=== PATIENT | male | born 1975 ===

== ENCOUNTER 2019-08-14 18:40 | Emergency (ER) | payer SELFPAY ==
--- OUTSIDE RECORDS SUMMARY | 2019-08-14 18:42 | XMS REPORT ---
:1975 [facility] Address [address] [place] [address] [address] [place] [address] Care Team Providers Name Role Phone Unavailable Unavailable Unavailable Problems This patient has no known problems. Allergies, Adverse Reactions, Alerts This patient has no known allergies or adverse reactions. Medications This patient has no known medications.
[2019-08-14 19:15] LABS: Protime INR 1.09
[2019-08-14 19:16] LABS: Absolute Lymphocytes (CBC) 1.6 K/uL (0.7-4.9); Basophils % 0.3 % (0-1.3); Hematocrit 51.4 % (39.6-49.0); Lymphocytes % 19.1 % (15.3-44.8); MPV 11.3 fL (7.6-11.3); RBC Red Blood Cell Count 5.62 M/uL (4.33-5.43)
--- NOTE | 2019-08-14 19:24 | RAD REPORT ---
EXAM DESCRIPTION: RAD - Chest Single View - 08/14/2019 7:09 pm CLINICAL HISTORY: CHEST PAIN COMPARISON: No comparisons TECHNIQUE: AP portable chest image was obtained 08/14/2019 7:09 pm . FINDINGS: Lungs are clear. Heart and vasculature are normal. No measurable pleural effusion and no p neumothorax. No acute bony abnormality seen. No acute aortic findings suspected. IMPRESSION: No acute cardiopulmonary process.
[2019-08-14 20:08] LABS: ALT/SGPT 54 U/L (12-78); AST/SGOT 21 U/L (15-37); Albumin 4.4 g/dL (3.4-5.0); Alkaline Phosphatase 64 U/L (45-117); BUN Blood Urea Nitrogen 16 mg/dL (7-18); Bicarbonate 27 mmol/L (21-32); Bilirubin Direct 0.2 mg/dL (0-0.2); Bilirubin Total 0.6 mg/dL (0.2-1.0); Glucose Level 108 mg/dL (74-106); NT PRO-BNP 17 pg/mL (<125); Potassium 3.5 mmol/L (3.5-5.1); Protein, Total 7.9 g/dL (6.4-8.2); Sodium Level 138 mmol/L (136-145); Troponin (Emerg Dept Use Only) < 0.02 ng/mL (0.0-0.045)
--- NOTE | 2019-08-14 21:03 | ER ---
Nurse's Notes [facility] Name: Nazario Aj Age: 44 yrs Sex: Male : 1975 Arrival Date: 08/14/2019 Time: 18:49 Bed 30 Private MD: Diagnosis: Pain in right shoulder Presentation: 08/14 18:50 Presenting complaint: EMS states: patient started having nonradiating chest pain since mg2 morning. Aspirin 324 mg given. PAIN SUBSIDED FROM 4 TO 2. he was seen in [place] 2 days ago for high blood pressure. Transition of care: patient was not received from another setting of care. Onset of symptoms was August 14, 2019. Risk Assessment: Do you want to hurt yourself or someone else? Patient reports no desire to harm self or others. Initial Sepsis Screen: Does the patient meet any 2 criteria? No. Patient's initial sepsis screen is negative. Does the patient have a suspected source of infection? No. Patient's initial sepsis screen is negative. Care prior to arrival: None. 18:50 Method Of Arrival: EMS: [facility] mg2 18:50 Acuity: CLEO 3 mg2 Historical: - Allergies: 18:55 No Known Allergies; mg2 - Home Meds: 18:55 HCTZ [Active]; mg2 - PMHx: 18:55 Hypertension; mg2 - PSHx: 18:55 None; mg2 - Immunization history:: Flu vaccine is not up to date. - Social history:: Smoking status: Patient denies any tobacco usage or history of. Patient uses alcohol, occasionally. Patient/guardian denies using street drugs, IV drugs. - Ebola Screening: : No symptoms or risks identified at this time. Screenin:01 Abuse screen: Denies threats or abuse. Denies injuries from another. Nutritional mg2 screening: No deficits noted. Tuberculosis screening: No symptoms or risk factors identified. Fall Risk IV access (20 points). Assessment: 19:01 General: Appears in no apparent distress. comfortable, Behavior is calm, cooperative. mg2 Pain: Complains of pain in chest Pain does not radiate. Pain currently is 2 out of 10 on a pain scale. Quality of pain is described as aching, Pain began gradually, Is intermittent. Neuro: Level of Consciousness is awake, alert, obeys commands, Oriented to person, place, time, situation. Cardiovascular: Capillary refill < 3 seconds Patient's skin is warm and dry. Cardiovascular: Reports chest pain. Respiratory: Airway is patent Respiratory effort is even, unlabored, Respiratory pattern is regular, symmetrical. GI: No signs and/or symptoms were reported involving the gastrointestinal system. :. EENT: No signs and/or symptoms were reported regarding the EENT system. Derm: Skin is intact, is healthy with good turgor, Skin is pink, warm \T\ dry. normal. Musculoskeletal: Circulation, motion, and sensation intact. Capillary refill < 3 seconds. 20:20 Reassessment: Patient appears in no apparent distress at this time. Patient and/or mg2 family updated on plan of care and expected duration. Pain level reassessed. Patient is alert, oriented x 3, equal unlabored respirations, skin warm/dry/pink. 21:17 Reassessment: Patient appears in no apparent distress at this time. Patient is alert, mg2 oriented x 3, equal unlabored respirations, skin warm/dry/pink. Vital Signs: 18:52 BP 131 / 90; Pulse 97; Resp 18; Pulse Ox 99% on R/A; Weight 86.18 kg; Height 5 ft. 8 mg2 in. (172.72 cm); Pain 2/10; 19:01 Temp 98.6(O); mg2 20:20 BP 137 / 92; Pulse 80; Resp 18; Pulse Ox 98% on R/A; mg2 21:10 BP 143 / 91; Pulse 75; Resp 18; Pulse Ox 100% on R/A; mg2 18:52 Body Mass Index 28.89 (86.18 kg, 172.72 cm) mg2 ED Course: 18:49 Patient arrived in ED. mg2 18:52 Triage completed. mg2 18:54 Arm band placed on. mg2 19:01 No provider procedures requiring assistance completed. Maintain EMS IV. Dressing mg2 intact. Good blood return noted. Site clean \T\ dry. Gauge \T\ site: 18 \T\ LAC. 19:03 Patient has correct armband on for positive identification. mg2 19:10 XRAY Chest (1 view) In Process Unspecified. EDMS 19:17 Santi Rudd RN is Primary Nurse. mg2 19:22 Jhonny Calhoun MD is Attending Physician. tw4 21:17 IV discontinued, intact, bleeding controlled, No redness/swelling at site. Pressure mg2 dressing applied. Administered Medications: No medications were administered Outcome: 21:02 Discharge ordered by . tw4 21:17 Discharged to home ambulatory, with family. mg2 21:17 Condition: stable 21:17 Discharge instructions given to patient, family, Instructed on discharge instructions, follow up and referral plans. medication usage, Demonstrated understanding of instructions, follow-up care, medications, Prescriptions given X 1. 21:18 Patient left the ED. mg2 Signatures: Dispatcher [employer] Jhonny Razo MD MD tw4 Santi Rudd, RN RN mg2
--- NOTE | 2019-08-14 21:03 | EDPHYS ---
Physician Documentation [facility] Name: Nazario Aj Age: 44 yrs Sex: Male : 1975 Arrival Date: 08/14/2019 Time: 18:49 Bed 30 Private MD: ED Physician Jhonny Calhoun HPI: 08/15 01:51 This 44 yrs old Male presents to ER via EMS with complaints of RIGHT SHOULDER PAIN. tw4 01:51 The patient or guardian complains of pain. right shoulder. Onset: The symptoms/episode tw4 began/occurred just prior to arrival, today. Modifying factors: the symptoms are alleviated by nothing. The symptoms are aggravated by nothing. Severity of symptoms: At their worst the symptoms were moderate. The patient has not experienced similar symptoms in the past. Historical: - Allergies: 08/14 18:55 No Known Allergies; mg2 - Home Meds: 18:55 HCTZ [Active]; mg2 - PMHx: 18:55 Hypertension; mg2 - PSHx: 18:55 None; mg2 - Immunization history:: Flu vaccine is not up to date. - Social history:: Smoking status: Patient denies any tobacco usage or history of. Patient uses alcohol, occasionally. Patient/guardian denies using street drugs, IV drugs. - Ebola Screening: : No symptoms or risks identified at this time. ROS: 08/15 01:51 Constitutional: Negative for fever, chills, and weight loss, Cardiovascular: Negative tw4 for chest pain, palpitations, and edema, Respiratory: Negative for shortness of breath, cough, wheezing, and pleuritic chest pain, Abdomen/GI: Negative for abdominal pain, nausea, vomiting, diarrhea, and constipation, Back: Negative for injury and pain, Skin: Negative for injury, rash, and discoloration, Neuro: Negative for headache, weakness, numbness, tingling, and seizure. MS/extremity: Positive for pain, Negative for acute changes, injury or acute deformity, abrasion, bite, contusion, decreased range of motion, deformity, ecchymosis, erythema. Exam: 01:51 Constitutional: This is a well developed, well nourished patient who is awake, alert, tw4 and in no acute distress. Head/Face: Normocephalic, atraumatic. Chest/axilla: Normal chest wall appearance and motion. Nontender with no deformity. No lesions are appreciated. Cardiovascular: Regular rate and rhythm with a normal S1 and S2. No gallops, murmurs, or rubs. Normal PMI, no JVD. No pulse deficits. Abdomen/GI: Soft, non-tender, with normal bowel sounds. No distension or tympany. No guarding or rebound. No evidence of tenderness throughout. Back: No spinal tenderness. No costovertebral tenderness. Full range of motion. Skin: Warm, dry with normal turgor. Normal color with no rashes, no lesions, and no evidence of cellulitis. MS/ Extremity: Pulses equal, no cyanosis. Neurovascular intact. Full, normal range of motion. Vital Signs: 08/14 18:52 BP 131 / 90; Pulse 97; Resp 18; Pulse Ox 99% on R/A; Weight 86.18 kg; Height 5 ft. 8 mg2 in. (172.72 cm); Pain 2/10; 19:01 Temp 98.6(O); mg2 20:20 BP 137 / 92; Pulse 80; Resp 18; Pulse Ox 98% on R/A; mg2 21:10 BP 143 / 91; Pulse 75; Resp 18; Pulse Ox 100% on R/A; mg2 18:52 Body Mass Index 28.89 (86.18 kg, 172.72 cm) mg2 MDM: 19:22 Patient medically screened. tw4 08/15 01:56 Differential diagnosis: tendonitis. Data reviewed: vital signs, nurses notes. Data tw4 interpreted: Pulse oximetry: Interpretation: normal. Counseling: I had a detailed discussion with the patient and/or guardian regarding: the historical points, exam findings, and any diagnostic results supporting the discharge/admit diagnosis, lab results, radiology results. Special discussion: I discussed with the patient/guardian in detail that at this point there is no indication for admission to the hospital. It is understood, however, that if the symptoms persist or worsen the patient needs to return immediately for re-evaluation. 08/14 18:49 Order name: Basic Metabolic Panel [facility] 08/14 18:49 Order name: CBC with Diff; Complete Time: 19:31 mg2 08/14 19:31 Interpretation: Normal except: RBC 5.62; PLT 149; HCT 51.4. tw4 08/14 18:49 Order name: LFT's mg2 08/14 18:49 Order name: Magnesium mg2 08/14 18:49 Order name: NT PRO-BNP mg2 08/14 18:49 Order name: PT-INR; Complete Time: 19:31 mg2 08/14 19:31 Interpretation: Within normal limits: PT 12.8. tw4 08/14 18:49 Order name: Troponin (emerg Dept Use Only) mg2 08/14 18:49 Order name: XRAY Chest (1 view); Complete Time: 19:31 mg2 08/14 18:49 Order name: EKG; Complete Time: 18:51 mg2 08/14 18:49 Order name: Cardiac monitoring; Complete Time: 18:55 mg2 08/14 18:49 Order name: EKG - Nurse/Tech; Complete Time: 18:55 mg2 08/14 18:49 Order name: IV Saline Lock; Complete Time: 18:55 mg2 08/14 18:49 Order name: Labs collected and sent; Complete Time: 18:56 mg2 08/14 18:49 Order name: O2 Per Protocol; Complete Time: 18:56 mg2 08/14 18:49 Order name: O2 Sat Monitoring; Complete Time: 18:56 mg2 EC:51 Rate is 84 beats/min. Rhythm is regular. QRS [place] is Normal. IA interval is normal. QRS tw4 interval is normal. QT interval is normal. No Q waves. T waves are Normal. No ST changes noted. Clinical impression: Normal ECG. Interpreted by me. Reviewed by me. Administered Medications: No medications were administered Disposition: 08/14/19 21:02 Discharged to Home. Impression: Pain in right shoulder. - Condition is Stable. - Discharge Instructions: Shoulder Pain, Shoulder Pain, [id number]. - Prescriptions for Diclofenac Sodium 75 mg Oral Tablet Sustained Release - take 1 tablet by ORAL route 2 times per day; 30 tablet. - Medication Reconciliation Form, Thank You Letter, Antibiotic Education, Prescription Opioid Use form. - Follow up: Private Physician; When: Upon discharge from the Emergency Department; Reason: Recheck today's complaints, Continuance of care. - Problem is new. - Symptoms have improved. Signatures: Dispatcher [employer] EDJhonny Romero MD MD tw4 Santi Rudd, HUBERT RN mg2 Corrections: (The following items were deleted from the chart) 08/14 21:18 21:02 08/14/2019 21:02 Discharged to Home. Impression: Pain in right shoulder. mg2 Condition is Stable. Forms are Medication Reconciliation Form, Thank You Letter, Antibiotic Education, Prescription Opioid Use. Follow up: Private Physician; When: Upon discharge from the Emergency Department; Reason: Recheck today's complaints, Continuance of care. Problem is new. Symptoms have improved. tw4
--- NOTE | 2019-08-15 13:39 | EKG ---
Test Date: 2019-08-14 Test Time: 18:49:43 Atm Manager: AER MEASUREMENT RESULTS: Intervals: Rate: 84 NC: 144 QRSD: 86 QT: 370 QTc: 437 [place]: P: 41 NC: 144 QRS: 59 T: 54 INTERPRETIVE STATEMENTS: Normal sinus rhythm Normal ECG No previous ECG available for comparison Electronically Signed On 08-15-19 13:37:11 DRILLING MACHINE OPERATOR by Jan Mcclain
== END 2019-08-14 21:18 | disposition home or self-care (01) ==
LOC: ER 18:40
DX: M25.511 Pain in right shoulder (principal); I10 Essential (primary) hypertension
CPT/HCPCS: 36415; 71045; 80048; 80076; 83735; 83880; 84484; 85025; 85610; 93005; 99283